=== PATIENT | female | born 1930 | race Caucasian/White ===

== ENCOUNTER 2017-02-17 19:23 | Emergency (ER) | payer OTHER ==
[~2017-02-17 19:23] MED LIST: ALDACTONE 25 MG25 MG PO; COUMADIN 2 MG TA2 MG PO; FUROSEMIDE40 MG PO; IMDUR30 MG PO
[2017-02-17] MEDS ORDERED: COUMADIN2 M1 PO (20:23)
[2017-02-17] MEDS ORDERED: NORVASC2.5 M1 PO (20:23)
[2017-02-17] MEDS ORDERED: ISOSORBIDE MONO30 M1 PO (20:24)
[2017-02-17] MEDS ORDERED: LASIX40 M1 PO (20:24)
--- NOTE | 2017-02-17 20:48 | ED GENERAL ADULT ---
History of Present Illness General Chief Complaint: Lower Extremity Problems Stated Complaint: RIGHT LEG SWELLING PER GRANDSON Source: patient, family, old records Exam Limitations: no limitations Vital Signs & Intake/Output Vital Signs & Intake/Output Vital Signs Date Time Temp Pulse Resp B/P B/P Pulse O2 O2 Flow FiO2 Mean Ox Delivery Rate 02/176 99.2 81 18 159/73 97 Room Air 02/17 1937 99.9 83 18 165/76 97 Room Air Allergies Coded Allergies: NO KNOWN ALLERGIES (06/02/14) Reconcile Medications Amlodipine (Norvasc) 2.5 MG TABLET 1 TAB PO DAILY BP (Reported) Furosemide (Lasix) 40 MG TABLET 1 TAB PO DAILY DIURETIC (Reported) Isosorbide Mononitrate (Isosorbide Mononitrate ER) 30 MG TAB.ER.24H 1 TAB PO DAILY HEART (Reported) Tylenol With Codeine (Tylenol With Codeine #3 Tablet) 300 MG-30 MG TABLET 1 TAB PO Q8P PRN PAIN Warfarin Sodium (Coumadin) 2 MG TABLET 1 TAB PO DAILY BLOOD THINNER (Reported ) Triage Note: PT TO TRIAGE WITH C/O LOWER BACK PAIN RADIATING TO LLE AND LLE SWELLING SINCE 02/13. PT DENIES CHEST PAIN, DENIES SOB, DENIES ABD PAIN. HX OF HTN. VSS. TEMP 99.9 IN TRIAGE. PT SPEAKS LUXEMBOURGER, FAMILY HERE FOR TRANSLATION. Triage Nurses Notes Reviewed? yes HPI: Patient presented with right lower back pain that radiates down her right leg, pain behind her right knee and right lower leg swelling. All the symptoms started on Thursday. The pain worsens with movement. The pain is aching in nature. There is no chest pain or shortness of breath. At its worst she rates the pain as moderate on the scale. There is no incontinence of bowel or bladder. There is no weakness or numbness. Past History Travel History Traveled to [place] past 21 day No Medical History Any Pertinent Medical History? see below for history Cardiovascular: AFIB, hypertension Surgical History Surgical History: non-contributory Psychosocial History What is your primary language Serbian Tobacco Use: Never used ETOH Use: occasional use Illicit Drug Use: denies illicit drug use Family History Hx Contributory? No Review of Systems Review of Systems Constitutional: Reports: no symptoms. EENTM: Reports: no symptoms. Respiratory: Reports: no symptoms. Cardiovascular: Reports: no symptoms. GI: Reports: no symptoms. Genitourinary: Reports: no symptoms. Musculoskeletal: Reports: see HPI, back pain, joint pain. Skin: Reports: no symptoms. Neurological/Psychological: Reports: no symptoms. Hematologic/Endocrine: Reports: no symptoms. Immunologic/Allergic: Reports: no symptoms. All Other Systems: Reviewed and Negative Physical Exam Physical Exam General Appearance: well developed/nourished, alert, awake, anxious, mild distress Head: atraumatic, normal appearance Eyes: Bilateral: PERRL, EOMI. Ears, Nose, Throat: normal pharynx, normal ENT inspection, hearing grossly normal Neck: normal inspection, supple, full range of motion Respiratory: normal breath sounds, chest non-tender, no respiratory distress, lungs clear Cardiovascular: regular rate/rhythm, normal peripheral pulses Gastrointestinal: normal bowel sounds, soft, non-tender, no organomegaly Back: normal inspection, normal range of motion, no vertebral tenderness Extremities: normal inspection, normal capillary refill, normal range of motion, TRACE EDEMA TO RLE Neurologic/Psych: no motor/sensory deficits, awake, alert, oriented x 3, normal gait, normal mood/affect Skin: intact, normal color, warm/dry Lymphatic: no anterior cervical myron Core Measures ACS in differential dx? No CVA/TIA Diagnosis: No Severe Sepsis Present: No Septic Shock Present: No Progress Differential Diagnoses I considered the following diagnoses in my evaluation of the patient: [DVT, sciatica, electolyte abnormality] Plan of Care: Orders Procedure Date/time Status Add-on Test (ER Only) 02/17 2109 Active PARTIAL THROMBOPLASTIN TIME 02/18 2108 Complete PROTHROMBIN TIME 02/18 2108 Complete URINALYSIS 02/18 2048 Complete COMPREHENSIVE METABOLIC PANEL 02/18 2048 Complete CBC WITHOUT DIFFERENTIAL 02/18 2048 Complete Laboratory Tests 02/17/170: CBC w Diff NO MAN DIFF REQ, RBC 4.22, MCV 88.6, MCH 29.5, RDW 14.3, MPV 8.9, Gran % 65.7, Lymphocytes % 23.4, Monocytes % 9.5 H, Eosinophils % 0.9, Basophils % 0.5, Absolute Granulocytes 5.1, Absolute Lymphocytes 1.8, Absolute Monocytes 0.7 H, Absolute Eosinophils 0.1, Absolute Basophils 0, PUBS MCHC 33.2 02/17/172107: Anion Gap 12, Estimated GFR > 60, BUN/Creatinine Ratio 26.3 H, Glucose 114 H, Calcium 8.7, Total Bilirubin 0.4, AST 22, ALT 36, Alkaline Phosphatase 67, Total Protein 7.2, Albumin 4.0, Globulin 3.2, Albumin/Globulin Ratio 1.3, PT 12.1, INR 1.15, APTT 30, Urine Color YEL, Urine Clarity CLEAR, Urine pH 6.5, Ur Specific [place] 1.015, Urine Protein TRACE H, Urine Ketones NEG, Urine Nitrite NEG, Urine Bilirubin NEG, Urine Urobilinogen 0.2, Ur Leukocyte Esterase SMALL H, Ur Microscopic SEDIMENT EXAMINED, Urine RBC 5-10 H, Urine WBC 15-25 H, Ur Epithelial Cells RARE, Urine Bacteria MOD H, Urine Hemoglobin SMALL H, Urine Glucose NEG Diagnostic Imaging: Viewed by Me: Ultrasound. Discussed w/RAD: Ultrasound. Radiology Impression: PATIENT: EDI THOMASON PRESENT AGE: 86 PATIENT ACCOUNT NO: [id number] : 30 LOCATION: [facility] ORDERING PHYSICIAN: J LUIS KAT MD SERVICE DATE: 02/17/17 EXAM TYPE: US - US-DUPLEX VENOUS EXTREM UNI EXAMINATION: US TRIPLEX LOWER EXTREMITY, RIGHT CLINICAL INFORMATION: Swelling, edema COMPARISON: None TECHNIQUE: Color-flow triplex imaging with spectral analysis and compression Doppler were performed on the right lower extremity. FINDINGS: Respiratory variation, normal compression and augmented flow are noted throughout the lower extremity. The visualized common femoral vein, superficial femoral vein, profunda femoral vein, popliteal vein and midcalf peroneal and posterior tibial venous segments show no evidence of deep venous thrombosis. Martinez's cyst. 4.6 x 1 x 2.3 cm.. IMPRESSION: Normal triplex scan without evidence of deep venous thrombosis involving the lower extremity. Note is made of a Martinez's cyst DICTATED BY: COLIN YAP MD DATE/ TIME DICTATED:02/17/172106 GAMING CAGE CASHIER:ELVER DATE/TIME TRANSCRIBED: 02/17/172106 CONFIDENTIAL, DO NOT COPY WITHOUT APPROPRIATE AUTHORIZATION. < Electronically signed in Other Vendor System> SIGNED BY: COLIN YAP MD 02/17/172111 Initial ED EKG: none Comments: PAIN IN BACK RESOLVED AFTER FLEXERIL BUT STILL HAS PAIN BEHIND HER KNEE Departure Departure Disposition: HOME OR SELF CARE Condition: Stable Clinical Impression Primary Impression: Low back pain Qualifiers: Chronicity: acute Back pain laterality: right Sciatica presence: with sciatica Sciatica laterality: sciatica of right side Qualified Code: M54.41 - Lumbago with sciatica, right side Secondary Impressions: Bakers cyst Qualifiers: Laterality: right Qualified Code: M71.21 - Synovial cyst of popliteal space [Martinez], right knee Referrals: ALEXIS SÁNCHEZ MD PATIENT HAS NO PRIMARY CARE DR (PCP/Family) Additional Instructions: TAKE TYLENOL #3 NEEDED FOR PAIN REUTRN IF SYMPTOMS WORSEN OR FOR ANY CONCERNS Departure Forms: Customer Survey General Discharge Information Prescriptions: Current Visit Scripts Tylenol With Codeine (Tylenol With Codeine #3 Tablet) 1 TAB PO Q8P PRN PAIN #20 TAB Critical Care Note Critical Care Note Critical Care Time: non-applicable
--- NOTE | 2017-02-17 21:12 | ULTRASOUND REPORT ---
EXAMINATION: US TRIPLEX LOWER EXTREMITY, RIGHT CLINICAL INFORMATION: Swelling, edema COMPARISON: None TECHNIQUE: Color-flow triplex imaging with spectral analysis and compression Doppler were performed on the right lower extremity. FINDINGS: Respiratory variation, normal compression and augmented flow are noted throughout the lower extremity. The visualized common femoral vein, superficial femoral vein, profunda femoral vein, popliteal vein and midcalf peroneal and posterior tibial venous segments show no evidence of deep venous thrombosis. Martinez's cyst. 4.6 x 1 x 2.3 cm.. IMPRESSION: Normal triplex scan without evidence of deep venous thrombosis involving the lower extremity. Note is made of a Martinez's cyst
[2017-02-17 21:19] LABS: ABSOLUTE BASOPHIL COUNT 0 /CUMM (0.0-0.2); ABSOLUTE EOSINOPHIL COUNT 0.1 /CUMM (0.0-0.7); ABSOLUTE GRANULOCYTE CT 5.1 /CUMM (1.4-6.5); ABSOLUTE LYMPH COUNT 1.8 /CUMM (1.2-3.4); ABSOLUTE MONOCYTE COUNT 0.7 /CUMM (0.10-0.60); BASOPHIL % 0.5 % (0.0-2.0); EOSINOPHIL % 0.9 % (0-5); GRANULOCYTE % 65.7 % (42.2-75.2); HEMATOCRIT 37.4 % (37-47); MEAN CORPUSCULAR HGB 29.5 PG (27.0-31.0); MEAN CORPUSCULAR HGB CONC 33.2 G/DL (33.0-37.0); MEAN CORPUSCULAR VOLUME 88.6 FL (81.0-99.0); MEAN PLATELET VOLUME 8.9 FL (7.4-10.4); PLATELET COUNT 206 /CUMM (130-400); RBC DISTRIBUTION WIDTH 14.3 % (11.5-14.5); RED BLOOD CELL CT 4.22 /CUMM (4.20-5.40); WHITE BLOOD CELL COUNT 7.7 /CUMM (4.8-10.8)
[2017-02-17 21:26] LABS: PT 12.1 SEC (9.4-12.5); PTT 30 SEC (25-37)
[2017-02-17] MEDS ORDERED: TYLENOL WITH C1 EACH PO (22:09)
[2017-02-17 22:16] VITALS: BP 159/73
== END 2017-02-17 22:14 ==
LOC: ERH 19:23 → EDBD 19:47 → ERH 22:14
PROVIDERS: Emergency Medicine
DX: M54.5 Low back pain (principal); M71.21 Synovial cyst of popliteal space [Baker], right knee
CPT/HCPCS: 81001

== ENCOUNTER 2017-02-21 11:30 | Emergency (ER) | payer OTHER ==
[~2017-02-21] VITALS: Ht 149.9 cm; Wt 68.0 kg
[~2017-02-21 11:30] MED LIST changes: +COUMADIN2 M1 PO; +ISOSORBIDE MONO30 M1 PO; +LASIX40 M1 PO; +NORVASC2.5 M1 PO; +TYLENOL WITH C1 EACH PO
--- NOTE | 2017-02-21 11:49 | ED GENERAL ADULT ---
History of Present Illness General Chief Complaint: Lower Extremity Problems Stated Complaint: LOWER LEG SWELLING Source: patient, family, old records Exam Limitations: language barrier Vital Signs & Intake/Output Vital Signs & Intake/Output Vital Signs Date Time Temp Pulse Resp B/P B/P Pulse O2 O2 Flow FiO2 Mean Ox Delivery Rate 02/21 1332 98.2 92 16 142/68 97 Room Air 02/21 1239 Room Air 02/21 1135 98.4 100 16 144/65 95 Room Air Allergies Coded Allergies: NO KNOWN ALLERGIES (06/02/14) Reconcile Medications Amlodipine (Norvasc) 2.5 MG TABLET 1 TAB PO DAILY BP (Reported) Furosemide (Lasix) 40 MG TABLET 1 TAB PO DAILY DIURETIC (Reported) Isosorbide Mononitrate (Isosorbide Mononitrate ER) 30 MG TAB.ER.24H 1 TAB PO DAILY HEART (Reported) Prednisone 10 MG TABLET 2 TAB PO DAILY KNEE ARTHRITIS/SWELLING Tylenol With Codeine (Tylenol With Codeine #3 Tablet) 300 MG-30 MG TABLET 1 TAB PO Q8P PRN PAIN Warfarin Sodium (Coumadin) 2 MG TABLET 1 TAB PO DAILY BLOOD THINNER (Reported ) Triage Note: PT HERE FOR R LOWER EXT. EDEMA. PT WAS SEEN HERE LAST THURSDAY FOR SAME. PER GRANDSON STATES THE SWELLING IS WORSE AND PT HAS NO PRIMARY CARE DR. SO HE BROUGHT HER BACK HERE. PT STATES HIS UNCLE WAS CALLED YESTERDAY AND TOLD TO BRING PT BACK Triage Nurses Notes Reviewed? yes HPI: Patient is an 86-year-old female brought in by her family member for evaluation of right lower extremity pain and swelling. Symptoms 1 week. Patient was seen on February 17 evaluated for the same symptoms. Patient had an ultrasound and blood work and was discharged with Tylenol with Codeine. Patient reports no improvement from the Tylenol with Codeine. Patient received a phone call from [facility] yesterday checking on how she was doing and she was instructed to return for further evaluation given that she has had no improvement. Pain is currently moderate to severe, worsens with movement and palpation. Denies any recent falls, fevers (TERRIE JOINER,ABDULLAHI) Past History Travel History Traveled to [place] past 21 day No Medical History Any Pertinent Medical History? see below for history Cardiovascular: AFIB, hypertension, [place] while living in [facility]? Surgical History Surgical History: non-contributory Psychosocial History What is your primary language Danish Tobacco Use: Never used ETOH Use: denies use Illicit Drug Use: denies illicit drug use Family History Hx Contributory? No (ABDULLAHI SMALLWOOD) Review of Systems Review of Systems Constitutional: Denies: chills, fever. Respiratory: Denies: short of breath. Cardiovascular: Denies: chest pain. GI: Reports: no symptoms. Musculoskeletal: Reports: see HPI. Skin: Denies: erythema, rash. Neurological/Psychological: Denies: numbness. Hematologic/Endocrine: Denies: bruising, bleeding. Immunologic/Allergic: Reports: no symptoms. (ABDULLAHI SMALLWOOD) Physical Exam Physical Exam General Appearance: alert, awake Head: atraumatic, normal appearance Eyes: Bilateral: normal appearance, PERRL, EOMI. Ears, Nose, Throat: hearing grossly normal Neck: normal inspection, supple, full range of motion Respiratory: normal breath sounds, chest non-tender, no respiratory distress, lungs clear Cardiovascular: irregularly irregular, rate controlled, no audible murmur Peripheral Pulses: 2+ radial (R) Back: normal inspection, normal range of motion Extremities: right knee swelling anteriorly and 1+ right lower extremity edema. Full active and passive range of motion. Pain increases with right knee flexion. Neurologic/Psych: awake, alert, oriented x 3 Skin: intact, normal color, warm/dry Core Measures ACS in differential dx? No CVA/TIA Diagnosis: No Severe Sepsis Present: No Septic Shock Present: No (ABDULLAHI SMALLWOOD) Progress Differential Diagnoses I considered the following diagnoses in my evaluation of the patient: knee sprain, martinez's cyst, septic joint, gout, meniscus injury, arthritis, dvt Plan of Care: Orders Procedure Date/time Status PROTHROMBIN TIME 02/21 1151 Complete Laboratory Tests 02/21/17 1200: PT 14.4 H, INR 1.38 H Results from previous visit reviewed. Martinez's cyst present on ultrasound. CBC normal, INR subtherapeutic. 1320: Discussed results of x-ray and INR with patient and her grandson. No signs of infected joint. Appears stable for discharge. Discussed with Dr. Monreal. Hansel wrap to right knee placed by nurse. (ABDULLAHI SMALLWOOD) Diagnostic Imaging: Viewed by Me: Radiology Read. Discussed w/RAD: Radiology Read. Radiology Impression: PATIENT: EDI THOMASON PRESENT AGE: 86 PATIENT ACCOUNT NO: [id number] : 30 LOCATION: [facility] ORDERING PHYSICIAN: ABDULLAHI JOINER SERVICE DATE: 02/21/17 EXAM TYPE: RAD - XRY-KNEE COMPLETE RIGHT EXAMINATION: XR KNEE, RIGHT CLINICAL INFORMATION: Right leg swelling COMPARISON: None TECHNIQUE: Four views of the right knee. FINDINGS: Soft tissue edema is demonstrated. Possible trace knee effusion. Mild degenerative changes with small osteophytes at the patella, tibial spine and medial joint margin are demonstrated. Mild medial joint space narrowing is seen. No acute osseous abnormality. IMPRESSION: Mild degenerative changes. Trace knee effusion with mild soft tissue swelling. No focal abnormalities. DICTATED BY: CHINYERE DIEHL MD DATE/TIME DICTATED:02/21/171254 SEAMLESS TUBE MILL OPERATOR:ELVER DATE/TIME TRANSCRIBED:02/21/171254 CONFIDENTIAL, DO NOT COPY WITHOUT APPROPRIATE AUTHORIZATION. <Electronically signed in Other Vendor System> SIGNED BY: CHINYERE DIEHL MD 02/21/17 1300 Initial ED EKG: none (TERRIE JOINER,ABDULLAHI) Departure Departure Disposition: HOME OR SELF CARE Condition: Stable Clinical Impression Primary Impression: Arthritis of right knee Secondary Impressions: Martinez's cyst of knee Qualifiers: Laterality: right Qualified Code: M71.21 - Synovial cyst of popliteal space [Martinez], right knee Subtherapeutic international normalized ratio (INR) Referrals: CARLOS BRUNO,AYANNA PATIENT HAS NO PRIMARY CARE DR (PCP/Family) ALESHA BRUNO,W JEAN PAUL Additional Instructions: Increase your Coumadin(Warfarin) dose to 4mg a day for [address] Oneill on Thursday for recheck of your Coumadin level and for further dosing instruction. Rest, ice your knee for 10 minutes 4-5 times a day, elevate, wear hansel wrap for support. Continue taking the Tylenol with codeine as previously directed for pain control. Follow up with Dr. Madrid(orthopedist) for further evaluation. Call for appointment. Return to the ER if fevers, redness developing to the knee, it is becoming more difficult to bend the knee, or worsening of symptoms. Departure Forms: Customer Survey General Discharge Information Prescriptions: Current Visit Scripts Prednisone 2 TAB PO DAILY #8 TAB (ABDULLAHI SMALLWOOD) PA/CHEMICAL PRODUCTION MACHINE OPERATOR Co-Sign Statement Statement: ED Attending supervision documentation- [X] I saw and evaluated the patient. I have also reviewed all the pertinent lab results and diagnostic results. I agree with the findings and the plan of care as documented in the PA's/CHEMICAL PRODUCTION MACHINE OPERATOR's documentation. [X] I have reviewed the ED Record and agree with the PA's/CHEMICAL PRODUCTION MACHINE OPERATOR's documentation. [] Additions or exceptions (if any) to the PAs/CHEMICAL PRODUCTION MACHINE OPERATOR's note and plan are summarized below: [] (SHEY BRUNO,J LUIS Jalloh) Critical Care Note Critical Care Note Critical Care Time: non-applicable (ABDULLAHI SMALLWOOD)
[2017-02-21 12:25] LABS: PT 14.4 SEC (9.4-12.5)
--- NOTE | 2017-02-21 13:00 | RADIOLOGY REPORT ---
EXAMINATION: XR KNEE, RIGHT CLINICAL INFORMATION: Right leg swelling COMPARISON: None TECHNIQUE: Four views of the right knee. FINDINGS: Soft tissue edema is demonstrated. Possible trace knee effusion. Mild degenerative changes with small osteophytes at the patella, tibial spine and medial joint margin are demonstrated. Mild medial joint space narrowing is seen. No acute osseous abnormality. IMPRESSION: Mild degenerative changes. Trace knee effusion with mild soft tissue swelling. No focal abnormalities.
[2017-02-21] MEDS ORDERED: PREDNISONE10 M2 PO (13:28)
[2017-02-21 13:32] VITALS: BP 142/68
== END 2017-02-21 13:33 ==
LOC: ERH 11:30
PROVIDERS: Physician Assistant
DX: M17.9 Osteoarthritis of knee, unspecified (principal); M71.21 Synovial cyst of popliteal space [Baker], right knee; R79.1 Abnormal coagulation profile
CPT/HCPCS: 73562-RT

== ENCOUNTER 2018-02-16 12:44 | Emergency (ER) | payer OTHER ==
[~2018-02-16 12:44] MED LIST changes: +PREDNISONE10 M2 PO
--- NOTE | 2018-02-16 13:27 | ED GENERAL ADULT ---
History of Present Illness General Chief Complaint: General Adult Stated Complaint: MULITPLE COMPLAINTS Source: patient Exam Limitations: language barrier Vital Signs & Intake/Output Vital Signs & Intake/Output Vital Signs Date Time Temp Pulse Resp B/P B/P Pulse O2 O2 Flow FiO2 Mean Ox Delivery Rate 02/16 1648 97.1 80 18 148/79 98 Room Air 02/16 1444 96.2 84 18 153/84 98 02/16 1250 96.5 107 20 173/78 98 Room Air Allergies Coded Allergies: NO KNOWN ALLERGIES (06/02/14) Reconcile Medications Amlodipine (Norvasc) 2.5 MG TABLET 1 TAB PO DAILY BP (Reported) Furosemide (Lasix) 40 MG TABLET 1 TAB PO DAILY DIURETIC (Reported) Isosorbide Mononitrate (Isosorbide Mononitrate ER) 30 MG TAB.ER.24H 1 TAB PO DAILY HEART (Reported) Warfarin Sodium (Coumadin) 2 MG TABLET 1 TAB PO DAILY BLOOD THINNER (Reported ) Triage Note: PT TO ED WITH GRAND DAUGHTER FOR C/O B/L LEG SWELLING. FAMILY ALSO STATES "A LUMP" BEHIND LEFT LEG. PT IS UPPER SORBIAN SPEAKING ONLY. Triage Nurses Notes Reviewed? yes Onset: Abrupt Duration: day(s):, constant Timing: recent history Injury Environment: home Severity: moderate, severe No Modifying Factors: none HPI: 87-year-old female brought in by family for increased pain and swelling to left leg. Patient has swelling from her knee down. She has also had some pain and swelling in her right leg. She's had some intermittent dizziness. History is somewhat limited secondary to patient's language. (Trino Knott) Past History Travel History Traveled to [place] past 21 day No Medical History Any Pertinent Medical History? see below for history Cardiovascular: AFIB, hypertension, [place] while living in [facility]? Surgical History Surgical History: non-contributory Psychosocial History What is your primary language Burundian Tobacco Use: Never used ETOH Use: denies use Illicit Drug Use: denies illicit drug use Family History Hx Contributory? No (Trino Knott) Review of Systems Review of Systems Constitutional: Reports: see HPI. EENTM: Reports: no symptoms. Respiratory: Reports: no symptoms. Cardiovascular: Reports: no symptoms. GI: Reports: no symptoms. Genitourinary: Reports: no symptoms. Musculoskeletal: Reports: see HPI. Skin: Reports: see HPI. Neurological/Psychological: Reports: no symptoms. Hematologic/Endocrine: Reports: no symptoms. Immunologic/Allergic: Reports: no symptoms. All Other Systems: Reviewed and Negative (Trino Knott) Physical Exam Physical Exam General Appearance: well developed/nourished, alert, awake Head: atraumatic Eyes: Bilateral: normal appearance. Ears, Nose, Throat: normal ENT inspection, hearing grossly normal Neck: normal inspection Respiratory: no respiratory distress Cardiovascular: irregularly irregular Gastrointestinal: soft Back: normal inspection Extremities: normal inspection, no edema Neurologic/Psych: awake, alert, oriented x 3 Skin: intact, normal color Core Measures ACS in differential dx? No CVA/TIA Diagnosis: No Sepsis Present: No Sepsis Focused Exam Completed? No (Trino Knott) Progress Differential Diagnoses I considered the following diagnoses in my evaluation of the patient: DVT, cellulitis, CHF, bakers cyst Plan of Care: Orders Procedure Date/time Status TROPONIN LEVEL 02/16 1337 Complete PARTIAL THROMBOPLASTIN TIME 02/16 1337 Complete PROTHROMBIN TIME 02/16 1337 Complete COMPREHENSIVE METABOLIC PANEL 02/16 1337 Complete CBC WITHOUT DIFFERENTIAL 02/16 1337 Complete B-TYPE NATRIURETIC PEP (BNP) 02/16 1337 Complete EKG 02/16 1337 Active Laboratory Tests 02/16/18 1358: Anion Gap 14, Estimated GFR > 60, BUN/Creatinine Ratio 30.0 H, Glucose 140 H, Calcium 9.2, Total Bilirubin 0.5, AST 17, ALT 24, Alkaline Phosphatase 65, Troponin I < 0.01, Zai-Y-Ruurefyqodd Pept 2100 H, Total Protein 7.6, Albumin 4.1, Globulin 3.5, Albumin/Globulin Ratio 1.2, PT 29.2 H, INR 2.65 H, APTT 47 H, CBC w Diff NO MAN DIFF REQ, RBC 4.35, MCV 89.7, MCH 29.5, MCHC 32.9 L, RDW 13.4, MPV 8.1, Gran % 58.6, Lymphocytes % 33.1, Monocytes % 5.9, Eosinophils % 1.5, Basophils % 0.9, Absolute Granulocytes 3.8, Absolute Lymphocytes 2.1, Absolute Monocytes 0.4, Absolute Eosinophils 0.1, Absolute Basophils 0.1 Diagnostic Imaging: Viewed by Me: Radiology Read, Ultrasound. Discussed w/RAD: Radiology Read, Ultrasound. Radiology Impression: PATIENT: EDI THOMASON PRESENT AGE: 87 PATIENT ACCOUNT NO: [id number] : 30 LOCATION: [facility] ORDERING PHYSICIAN: Trino JOINER SERVICE DATE: 02/16/18 EXAM TYPE: US - US -EXT BILAT VENOUS DOPPLER EXAMINATION: US TRIPLEX OF LOWER EXTREMITIES, BILATERAL CLINICAL INFORMATION: Swelling in legs. COMPARISON: X-ray the right knee January 2017 TECHNIQUE: Color-flow triplex imaging with spectral analysis and compression Doppler were performed on the lower extremities. FINDINGS: Respiratory variation, normal compression and augmented flow are noted throughout the lower extremities. The visualized common femoral vein, superficial femoral vein, profunda femoral vein, popliteal vein and midcalf peroneal and posterior tibial venous segments show no evidence of deep venous thrombosis. There is a 6.5 x 1.5 x 3.8 cm fluid collection in the popliteal fossa on the left consistent with Martinez's cyst. IMPRESSION: No evidence of deep vein thrombosis bilaterally. Incidental note made of a small to moderate-sized Martinez's cyst on the left. DICTATED BY: Gurvinder Mancini MD DATE/TIME DICTATED: 02/16/181609 BIOMETRICS ANALYST:ELVER DATE/TIME TRANSCRIBED:02/16/181609 CONFIDENTIAL, DO NOT COPY WITHOUT APPROPRIATE AUTHORIZATION. <Electronically signed in Other Vendor System> SIGNED BY: Gurvinder Mancini MD 02/16/181614, PATIENT: EDI THOMASON PRESENT AGE: 87 PATIENT ACCOUNT NO: [id number] : 30 LOCATION: [facility] ORDERING PHYSICIAN: Trino JOINER SERVICE DATE: 02/16/18 EXAM TYPE: RAD - XRY-PORTABLE CHEST XRAY EXAMINATION: XR PORTABLE CHEST CLINICAL INFORMATION: Swelling in legs, rule out CHF COMPARISON: 06/02/2014 TECHNIQUE: Portable frontal view of the chest was obtained. FINDINGS: Cardiac silhouette is enlarged. There is mild central vascular congestion and interstitial edema. No consolidation or effusion. Lung volumes are low. IMPRESSION: Mild congestive heart failure. DICTATED BY: Steven Chavez MD DATE/TIME DICTATED:04/24/18 / 1433 BIOMETRICS ANALYST:ELVER DATE/ TIME TRANSCRIBED:02/16/18 / 1433 CONFIDENTIAL, DO NOT COPY WITHOUT APPROPRIATE AUTHORIZATION. <Electronically signed in Other Vendor System> SIGNED BY: Steven Chavez MD 02/16/181438 Initial ED EKG: rate (72), AFIB (Mehdi JOINER,Trino) Departure Departure Disposition: HOME OR SELF CARE Condition: Stable Clinical Impression Primary Impression: Peripheral edema Secondary Impressions: Volume overload Referrals: Patient Has No Primary Care Dr (PCP/Family) Additional Instructions: Increased her Lasix to 40 mg twice daily for the next 72 hours. Follow-up with Dr. Oneill within the next 72 hours. Return if any concerns worsening symptoms. Return if any chest pain shortness of breath. Please go over all results of today's visit with your primary care doctor. Contact your primary care doctor to let them know you were here in the emergency room. There may be nonspecific findings which may not be related to your visit today here in the emergency room but may require further evaluation and chronic monitoring by your primary care doctor. If you had a laceration today the chance of foreign body always remains. You should follow-up with your primary care doctor for recheck in 3-5 days for a wound check. If you had an x-ray done there is a chance that a fracture could have been missed on initial read and you should follow-up with your primary care doctor for repeat x-rays if symptoms persist. If your blood pressure was elevated here in the emergency room please have rechecked by [facility] primary care doctor within the next 48. If you were prescribed a narcotic here in the emergency room or any type of controlled substances you're not allowed to drive while taking this medication or operate any type of heavy machinery. Narcotics can make you feel lightheaded dizziness nausea and can cause constipation. You may need to pick out hand a stool softener. Thank you for choosing [facility] emergency room. Please return to the emergency room immediately if you have any other concerns worsening of symptoms. Departure Forms: Customer Survey General Discharge Information Comments 02/16/2018 5:23:19 PM Patient is clinically in no apparent distress. Nontoxic appearing. Resting comfortably in room. Follow-up with Dr. Oneill within next [address] Barnes sales administration specialist for coverage. Clinically the patient did not present with acute CHF. She has no respiratory distress. No crackles on exam. Dr. Barnes agrees with plan of care. Patient was given a dose of IV Lasix. I feel the leg swelling is likely related more to Martinez's cyst. Potentially some right-sided heart failure palpation does not require admission at this time. Patient can follow-up. Return if any concerns. Discussed these results with the patient and family. Return if any other concerns. (Trino Knott) PA/MANAGER OF GLOBAL Co-Sign Statement Statement: ED Attending supervision documentation- [x] I saw and evaluated the patient. I have also reviewed all the pertinent lab results and diagnostic results. I agree with the findings and the plan of care as documented in the PA's/MANAGER OF GLOBAL's documentation. Pt presented for evaluation of lle edema. exam reveals bilateral leg edema, L>R with no signs of cellulitis. [] I have reviewed the ED Record and agree with the PA's/MANAGER OF GLOBAL's documentation. [] Additions or exceptions (if any) to the PAs/MANAGER OF GLOBAL's note and plan are summarized below: [] (Cristine BRUNO,Edgar Pierce) Critical Care Note Critical Care Note Critical Care Time: non-applicable (Trino Knott)
[2018-02-16 14:12] LABS: ABSOLUTE BASOPHIL COUNT 0.1 /CUMM (0.0-0.2); ABSOLUTE EOSINOPHIL COUNT 0.1 /CUMM (0.0-0.7); ABSOLUTE GRANULOCYTE CT 3.8 /CUMM (1.4-6.5); ABSOLUTE LYMPH COUNT 2.1 /CUMM (1.2-3.4); ABSOLUTE MONOCYTE COUNT 0.4 /CUMM (0.10-0.60); BASOPHIL % 0.9 % (0.0-2.0); EOSINOPHIL % 1.5 % (0-5); GRANULOCYTE % 58.6 % (42.2-75.2); MEAN CORPUSCULAR HGB 29.5 PG (27.0-31.0); MEAN CORPUSCULAR HGB CONC 32.9 G/DL (33.0-37.0); MEAN CORPUSCULAR VOLUME 89.7 FL (81.0-99.0); MEAN PLATELET VOLUME 8.1 FL (7.4-10.4); PLATELET COUNT 324 /CUMM (130-400); RBC DISTRIBUTION WIDTH 13.4 % (11.5-14.5); RED BLOOD CELL CT 4.35 /CUMM (4.20-5.40); WHITE BLOOD CELL COUNT 6.5 /CUMM (4.8-10.8)
[2018-02-16 14:21] LABS: PT 29.2 SEC (9.4-12.5); PTT 47 SEC (25-37)
--- NOTE | 2018-02-16 14:39 | RADIOLOGY REPORT ---
EXAMINATION: XR PORTABLE CHEST CLINICAL INFORMATION: Swelling in legs, rule out CHF COMPARISON: 06/02/2014 TECHNIQUE: Portable frontal view of the chest was obtained. FINDINGS: Cardiac silhouette is enlarged. There is mild central vascular congestion and interstitial edema. No consolidation or effusion. Lung volumes are low. IMPRESSION: Mild congestive heart failure.
--- NOTE | 2018-02-16 16:15 | ULTRASOUND REPORT ---
EXAMINATION: US TRIPLEX OF LOWER EXTREMITIES, BILATERAL CLINICAL INFORMATION: Swelling in legs. COMPARISON: X-ray the right knee January 2017 TECHNIQUE: Color-flow triplex imaging with spectral analysis and compression Doppler were performed on the lower extremities. FINDINGS: Respiratory variation, normal compression and augmented flow are noted throughout the lower extremities. The visualized common femoral vein, superficial femoral vein, profunda femoral vein, popliteal vein and midcalf peroneal and posterior tibial venous segments show no evidence of deep venous thrombosis. There is a 6.5 x 1.5 x 3.8 cm fluid collection in the popliteal fossa on the left consistent with Martinez's cyst. IMPRESSION: No evidence of deep vein thrombosis bilaterally. Incidental note made of a small to moderate-sized Martinez's cyst on the left.
[2018-02-16 16:48] VITALS: BP 148/79
== END 2018-02-16 17:40 ==
LOC: ERH 12:44
PROVIDERS: Physician Assistant Medical
DX: E87.70 Fluid overload, unspecified (principal); R60.9 Edema, unspecified
CPT/HCPCS: 71045; 93005; 93010; 93970; J1940